=== PATIENT | female | born 1995 | race Two or more races ===

== ENCOUNTER → 2025-01-05 | Outpatient (CLI) | payer OTHER, SELFPAY ==
--- NOTE | 2025-01-05 16:02 | XR_ITS ---
Examination: Hand, right 3 views Technique: Hand AP, oblique, lateral 3 views Date and time of exam: January 05, 2025 1626 hours INDICATIONS: Injury to the hand today with fourth and second digit pain FINDINGS: Mild juxta-articular bone demineralization No acute fracture No foreign body IMPRESSION: No acute fracture
== END | disposition home or self-care (01) ==
PROVIDERS: PCP Family Medicine; Referring Provider Family Medicine; Visit Provider Family Medicine
DX: S69.91XA Unspecified injury of right wrist, hand and finger(s), initial encounter (principal); X58.XXXA Exposure to other specified factors, initial encounter
CPT/HCPCS: 73130